=== PATIENT | female | born 1970 | race Caucasian/White ===

== ENCOUNTER 2018-11-22 20:44 | Emergency (ER) | payer BC ==
--- NOTE | 2018-11-22 21:44 | EDM.PDOC ---
ED HPI GENERAL MEDICAL PROBLEM - General Chief Complaint: General Stated Complaint: fever 101.2 Time Seen by Provider: 11/22/18 21:10 Source of Information: Reports: Patient, Significant Other (Boyfriend) History Limitations: Reports: No Limitations - History of Present Illness INITIAL COMMENTS - FREE TEXT/NARRATIVE: Ms. Robertson is a pleasant 48-year-old woman who states that she developed chills and body aches around 14:00 this afternoon. She found her temperature to be elevated at 101.2 around 19:00. She took 400 mg of ibuprofen around 20:00. The patient denies recent urinary symptoms, such as dysuria, urinary frequency, or urgency, although she reports some urinary pressure that developed around 19: 00. She denies having suprapubic pain, low back pain, or flank pain. The patient states that she had some watery diarrhea this morning. No recent nausea, vomiting, or constipation. No recent cough or dyspnea. No recent sinus pressure, sinus congestion, nasal congestion, or rhinorrhea. No similarly ill contacts. The patient states that she has never received an influenza vaccine. The patient's PCP is Vida Preciado NP. She receives gynecologic care from Minerva Gil NP or Dr. Harley Lucio. 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 Psychiatric History: Reports: Anxiety, Depression Endocrine/Metabolic History: Reports: Obesity/BMI 30+ - Infectious Disease History Infectious Disease History: Reports: Chicken Pox - Past Surgical History HEENT Surgical History: Reports: Oral Surgery (wisdom teeth extraction) GI Surgical History: Reports: Appendectomy, Cholecystectomy (1991 or ) Female Surgical History: Reports: D&C (x 1), Other (See Below) (Salpingotomy for tubal ) Social & Family History - Family History Family Medical History: Noncontributory Cardiac: Reports: Hypertension Endocrine/Metabolic: Reports: Diabetes, type II Oncologic: Reports: Thyroid - Tobacco Use Smoking Status *Q: Former Smoker Years of Tobacco use: 33 Packs/Tins Daily: 0.3 Month/Year Tobacco Last Used: Quit Mar 2018 - Caffeine Use Caffeine Use: Reports: Soda Other Caffeine Use: occasional soda - Alcohol Use Alcohol Use History: Yes Alcohol Use Frequency: Socially - Recreational Drug Use Recreational Drug Use: No - Living Situation & Occupation Living situation: Reports: , with Significant Other (Boyfriend) 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 ED EXAM, GENERAL - Physical Exam Exam: See Below Exam Limited By: No Limitations General Appearance: Alert, WD/WN, No Apparent Distress Eye Exam: Bilateral Eye: EOMI, Normal Inspection Ears: Normal External Exam, Hearing Grossly Normal Nose: Normal Inspection Throat/Mouth: Normal Inspection, Normal Lips, Normal Voice, No Airway Compromise Head: Atraumatic, Normocephalic Neck: Normal Inspection, Full Range of Motion Respiratory/Chest: No Respiratory Distress, Lungs Clear, Normal Breath Sounds, No Accessory Muscle Use. No: Decreased Breath Sounds, Crackles, Rhonchi, Wheezing, Stridor, Prolonged Expiration Cardiovascular: Normal Peripheral Pulses, Regular Rate, Rhythm, No Edema, No Gallop, No JVD, No Murmur, No Rub Peripheral Pulses: 4+: Radial (L), Radial (R) GI/Abdominal: Normal Bowel Sounds, Soft, Non-Tender (including suprapubically), No Organomegaly, No Distention, No Abnormal Bruit, No Mass (Female) Exam: Deferred Rectal (Female) Exam: Deferred Back Exam: Normal Inspection, Full Range of Motion. No: CVA Tenderness (L), CVA Tenderness (R) Extremities: Normal Inspection, Normal Range of Motion, No Pedal Edema, Normal Capillary Refill Neurological: Alert, Oriented, Normal Cognition, No Motor/Sensory Deficits Psychiatric: Normal Affect Skin Exam: Warm, Dry, Intact, Normal Color, No Rash Course - Vital Signs Last Recorded V/S: Last Vital Signs Temp 36.1 C 11/22/18 21:00 Pulse 98 11/22/18 21:00 Resp 18 11/22/18 21:00 BP 120/81 11/22/18 21:00 Pulse Ox 98 11/22/18 21:00 - Orders/Labs/Meds Orders: Active Orders 24 hr Category Date Time Status CULTURE URINE [RM] Stat Lab 11/22/18 23:35 Ordered Labs: Laboratory Tests 11/22/18 11/22/18 11/22/18 Range/Units 21:15 21:15 22:35 Urine Color Yellow Dark yellow (Yellow) Urine Appearance Slt cloudy H Slt cloudy H (Clear) Urine pH 8.5 H 6.0 (5.0-8.0) Ur Specific [place] 1.020 > or = 1.030 (1.005-1.030) Urine Protein Trace H 1+ H (Negative) Urine Glucose (UA) Negative Negative (Negative) Urine Ketones Negative 1+ H (Negative) Urine Occult Blood 2+ H 3+ H (Negative) Urine Nitrite Negative Negative (Negative) Urine Bilirubin Negative 1+ H (Negative) Urine Urobilinogen 0.2 0.2 (0.2-1.0) Ur Leukocyte Esterase Negative Negative (Negative) Urine RBC 20-30 H 10-20 H (0-5) /hpf Urine WBC 0-5 0-5 (0-5) /hpf Ur Squamous Epith Cells 10-20 H 0-5 (0-5) /hpf Amorphous Sediment Many H (NOT SEEN) /hpf Urine Bacteria Moderate H Moderate H (FEW) /hpf Urine Mucus Few Moderate H (FEW) /hpf Urine HCG, Qual Negative (NEGATIVE) - Re-Assessments/Exams Free Text/Narrative Re-Assessment/Exam: 11/22/18 21:42 The patient's physical exam is nonfocal, indicating that she likely has a viral illness. The patient has already provided a urine sample, and I ordered a urinalysis and urine test. Because the patient has never received an influenza vaccine, and because she had a fever, even though she has not been coughing, I ordered an influenza swab. I do not see an indication for any other testing at this time. 11/22/18 22:10 The patient's urinalysis appears to be contaminated and is uninterpretable. Her urine test is negative. The influenza swab is still pending. I have ordered a repeat urinalysis. 11/22/18 23:32 The patient was seen eloping from the ED without notifying her nurse. We attempted to contact her by cell phone, but none of the numbers provided appear to be active. 11/22/18 23:35 The patient's repeat urinalysis just resulted. It demonstrates slightly cloudy appearance, 3+ occult blood with 10-20 RBCs, leukocyte esterase negative with 0- 5 WBCs, nitrate negative with moderate bacteria, and 0-5 squamous epithelial cells. This urinalysis is more concerning for a ureterolith, but is not inconsistent with a UTI. I have ordered a urine culture, in case the patient follows up or returns to the ED. Departure - Departure Time of Disposition: 23:35 Disposition: Eloped 07 Condition: Good Clinical Impression: UTI (urinary tract infection), Febrile illness - Discharge Information *PRESCRIPTION DRUG MONITORING PROGRAM REVIEWED*: Not Applicable *COPY OF PRESCRIPTION DRUG MONITORING REPORT IN PATIENT MAREK: Not Applicable Referrals: Vida Preciado NP [Ordering Only Provider] - - My Orders Last 24 Hours: My Active Orders 11/22/18 23:35 CULTURE URINE [RM] Stat - Assessment/Plan Last 24 Hours: My Active Orders 11/22/18 23:35 CULTURE URINE [RM] Stat
== END 2018-11-22 23:25 | disposition left against medical advice (07) ==
LOC: JD.ED 20:44
DX: N39.0 Urinary tract infection, site not specified (principal); R50.9 Fever, unspecified; F32.9 Major depressive disorder, single episode, unspecified; K21.9 Gastro-esophageal reflux disease without esophagitis; E66.9 Obesity, unspecified; Z68.31 Body mass index [BMI] 31.0-31.9, adult; Z87.891 Personal history of nicotine dependence; Z79.899 Other long term (current) drug therapy
CPT/HCPCS: 81001; 81025; 87086; 87804; 99283

== ENCOUNTER 2020-06-27 07:32 | Day surgery (SDC) | payer BC ==
[~2020-06-27 07:32] MED LIST: Dexamethasone 4 MG/ML 5 ML MDV ONE; Lactated Ringers 1,000 ML IV SCH; Lactated Ringers 1,000 ML ONE; Lidocaine 1% 4 ML ONE; Lidocaine 1%/Sod Bicarbonate in NS 8.4% 1 ML Syringe IDERM PRN; Midazolam 1 MG/ML 2 ML SDV ONE; Ondansetron 4 MG/2 ML SDV ONE; Propofol 200 MG/20 ML SDV ONE; Rocuronium 50 MG/5 ML Vial ONE; Sodium Chloride 0.9% 10 ML Syringe FLUSH PRN; ceFAZolin 1 GM Vial ONE; fentaNYL 250 MCG/5 ML SDV ONE
[2020-06-27] MEDS: Lidocaine 1% with EPINEPHrine 1:100,000 10 ML MDV ONE ×2 (09:20→09:31)
[2020-06-27] MEDS: Sodium Chloride 0.9% 50 ML SDV ONE ×2 (09:20→09:30)
[2020-06-27] MEDS ORDERED: Propofol 200 MG/20 ML SDV ONE (09:25)
[2020-06-27] MEDS ORDERED: Ketamine 500 mg/10 ML MDV ONE (09:25)
[2020-06-27] MEDS ORDERED: HYDROmorphone 0.5 MG/0.5 ML Syringe IVPUSH PRN (09:41)
[2020-06-27] MEDS ORDERED: fentaNYL 100 MCG/2 ML SDV IVPUSH PRN (09:41)
[2020-06-27] MEDS ORDERED: Ondansetron 4 MG/2 ML SDV IVPUSH PRN ×2 (09:41→10:05)
[2020-06-27] MEDS ORDERED: Ketorolac 30 MG/ML SDV ONE (09:44)
--- NOTE | 2020-06-27 09:55 | PCM.PREANE ---
Preanesthetic Assessment - Procedure Proposed Procedure: Total Vaginal Hysterectomy with bilateral salpingectomy - Anesthesia/Transfusion/Family Hx Anesthesia History: Prior Anesthesia Without Reaction Family History of Anesthesia Reaction: No Transfusion History: No Prior Transfusion(s) - Review of Systems General: No Symptoms Pulmonary: No Symptoms Cardiovascular: No Symptoms Gastrointestinal: Other (Mild GERD, controlled with medication, no symptoms. ) Neurological: No Symptoms Other: Reports: None (Elevated platelets), Thyroid Problems (Abnomal TSH), Depression - Physical Assessment NPO Status Date: 06/26/20 NPO Status Time: 19:00 Vital Signs: Last Vital Signs Temp 36.6 C 06/27/20 08:00 Pulse 68 06/27/20 08:00 Resp 16 06/27/20 08:00 BP 136/80 06/27/20 08:00 Pulse Ox 98 06/27/20 08:00 Height: 1.68 m Weight: 93.894 kg ASA Class: 2 Mental Status: Alert & Oriented x3 Airway Class: Mallampati = 2 Dentition: Reports: [place](s) (Front tooth.), Missing Tooth/Teeth (Molar) Thyro-Mental Finger Breadths: 2 Mouth Opening Finger Breadths: 3 ROM/Head Extension: Full Lungs: Clear to Auscultation, Normal Respiratory Effort Cardiovascular: Regular Rate, Regular Rhythm - Allergies Allergies/Adverse Reactions: Allergies Allergy/AdvReac Type Severity Reaction Status Date / Time No Known Allergies Allergy Verified 06/27/20 08:21 - Anesthesia Plan Pre-Op Medication Ordered: Anxiolytic - Acknowledgements Anesthesia Type Planned: General Anesthesia Pt an Appropriate Candidate for the Planned Anesthesia: Yes Alternatives and Risks of Anesthesia Discussed w Pt/Guardian: Yes Pt/Guardian Understands and Agrees with Anesthesia Plan: Yes PreAnesthesia Questionnaire - Past Health History Medical/Surgical History: Denies Medical/Surgical History HEENT History: Reports: None Cardiovascular History: Reports: None Respiratory History: Reports: None Gastrointestinal History: Reports: GERD Genitourinary History: Reports: Pyelonephritis, UTI, Recurrent, Other (See Below) Other Genitourinary History: ectopic 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 , 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, , Other (See Below) Other OB/BYN History: fibrous breast lumps, gential warts, LGSIL Musculoskeletal History: Reports: None Neurological History: Reports: None Psychiatric History: Reports: Anxiety, Depression Endocrine/Metabolic History: Reports: Obesity/BMI 30+ Hematologic History: Reports: None Immunologic History: Reports: None Oncologic (Cancer) History: Reports: None Dermatologic History: Reports: None - Infectious Disease History Infectious Disease History: Reports: Chicken Pox - Past Surgical History Head Surgeries/Procedures: Reports: None HEENT Surgical History: Reports: Oral Surgery Cardiovascular Surgical History: Reports: None Respiratory Surgical History: Reports: None GI Surgical History: Reports: Appendectomy, Cholecystectomy Other GI Surgeries/Procedures: acute appendicitis---lap appy done 12/03/17 Female Surgical History: Reports: Breast Reduction, D&C, LEEP, Other (See Below) Other Female Surgeries/Procedures: tubal Endocrine Surgical History: Reports: None Neurological Surgical History: Reports: None Musculoskeletal Surgical History: Reports: None Oncologic Surgical History: Reports: None Dermatological Surgical History: Reports: None - SUBSTANCE USE Tobacco Use Status *Q: Former Tobacco User Recreational Drug Use History: No - HOME MEDS Home Medications: Home Meds Omeprazole 20 mg PO DAILY 12/03/17 [History] Melatonin 3 mg PO DAILY 06/26/20 [History] buPROPion [Wellbutrin SR] 150 mg PO DAILY 06/26/20 [History] - CURRENT (IN HOUSE) MEDS Current Meds: Current Medications Fentanyl (Fentanyl 100 Mcg/2 Ml Sdv) 50 mcg IVPUSH Q5M PRN PRN Reason: Pain Stop: 06/27/20 18:00 Hydromorphone HCl (Hydromorphone 0.5 Mg/0.5 Ml Syringe) 0.5 mg IVPUSH Q10M PRN PRN Reason: Pain (severe 7-10) Stop: 06/27/20 18:00 Lactated Ringer's (Ringers, Lactated) 1,000 mls @ 125 mls/hr IV ASDIRECTED TANNER Stop: 06/27/20 23:00 Last Admin: 06/27/20 08:00 Dose: 125 mls/hr Documented by: Lidocaine/Sodium Bicarbonate (Lidocaine 1%/Sod Bicarbonate In Ns 8.4% 1 Ml Syringe) 0.25 ml IDERM ONETIME PRN PRN Reason: Prior to IV Start Stop: 06/27/20 18:00 Last Admin: 06/27/20 08:00 Dose: 0.25 ml Documented by: Ondansetron HCl (Ondansetron 4 Mg/2 Ml Sdv) 4 mg IVPUSH ONETIME PRN PRN Reason: Nausea/Vomiting Stop: 06/27/20 18:00 Sodium Chloride (Sodium Chloride 0.9% 10 Ml Syringe) 10 ml FLUSH ASDIRECTED PRN PRN Reason: Keep Vein Open Stop: 06/27/20 18:00 Discontinued Medications Cefazolin Sodium (Cefazolin 1 Gm Vial) Confirm Administered Dose 2 gm .ROUTE .STK-MED ONE Stop: 06/27/20 07:25 Dexamethasone (Dexamethasone 4 Mg/Ml 5 Ml Mdv) Confirm Administered Dose 20 mg .ROUTE .STK-MED ONE Stop: 06/27/20 07:33 Fentanyl (Fentanyl 250 Mcg/5 Ml Sdv) Confirm Administered Dose 250 mcg .ROUTE .S -MED ONE Stop: 06/27/20 07:26 Glycopyrrolate (Glycopyrrolate 0.2 Mg/Ml 2 Ml Syringe) Confirm Administered Dose 0.4 mg .ROUTE .STK-MED ONE Stop: 06/27/20 09:43 Lidocaine HCl (Xylocaine-Mpf 1%) Confirm Administered Dose 4 mls @ as directed .ROUTE .STK-MED ONE Stop: 06/27/20 07:25 Lactated Ringer's (Ringers, Lactated) Confirm Administered Dose 1,000 mls @ as directed .ROUTE .STK-MED ONE Stop: 06/27/20 07:25 Ketamine HCl (Ketamine 500 Mg/10 Ml Mdv) Confirm Administered Dose 500 mg .ROUTE .STK-MED ONE Stop: 06/27/20 09:26 Ketorolac Tromethamine (Ketorolac 30 Mg/Ml Sdv) Confirm Administered Dose 30 mg .ROUTE .STK-MED ONE Stop: 06/27/20 09:45 Lidocaine/Epinephrine (Lidocaine 1% With Epinephrine 1:100,000 10 Ml Mdv) Confirm Administered Dose 20 ml .ROUTE .STK-MED ONE Stop: 06/27/20 08:22 Last Admin: 06/27/20 09:31 Dose: 20 ml Documented by: Midazolam HCl (Midazolam 1 Mg/Ml 2 Ml Sdv) Confirm Administered Dose 2 mg .ROUTE .STK-MED ONE Stop: 06/27/20 07:26 Neostigmine Methylsulfate (Neostigmine Methylsulfate 5 Mg/5 Ml Syringe) Confirm Administered Dose 5 mg .ROUTE .STK-MED ONE Stop: 06/27/20 09:43 Ondansetron HCl (Ondansetron 4 Mg/2 Ml Sdv) Confirm Administered Dose 4 mg .ROUTE .STK-MED ONE Stop: 06/27/20 07:25 Propofol (Propofol 200 Mg/20 Ml Sdv) Confirm Administered Dose 400 mg .ROUTE .STGradeable-MED ONE Stop: 06/27/20 07:25 Propofol (Propofol 200 Mg/20 Ml Sdv) Confirm Administered Dose 200 mg .ROUTE .STK-MED ONE Stop: 06/27/20 09:26 Rocuronium [place] (Rocuronium 50 Mg/5 Ml Vial) Confirm Administered Dose 50 mg .ROUTE .STK-MED ONE Stop: 06/27/20 07:25 Sodium Chloride (Sodium Chloride 0.9% 50 Ml Sdv) Confirm Administered Dose 50 ml .ROUTE .STGradeable-MED ONE Stop: 06/27/20 08:22 Last Admin: 06/27/20 09:30 Dose: 50 ml Documented by:
[2020-06-27] MEDS ORDERED: Acetaminophen/oxyCODONE 325-5 MG Tab PO PRN (10:05)
--- NOTE | 2020-06-27 10:11 | PCM.OPNOTE ---
- General Post-Op/Procedure Note Date of Surgery/Procedure: 06/27/20 Operative Procedure(s): Total vaginal hysterectomy with bilateral salpingectomy Findings: Uterus is small, fallopian tubes were within normal is. There is no evidence of previous salpingectomy or partial salpingectomy. Fibroid noted on the posterior right aspect of the uterus. This is approximately 1 cm in diameter. Ovaries appeared functional and normal in appearance and were left in place per patient desire. Pre Op Diagnosis: 1. Persistently abnormal Pap smears Post-Op Diagnosis: Same Anesthesia Technique: General ET Tube Other Anesthesia Type: Lidocaine quarter percent with [id number] cclocal Primary Surgeon: Harley Lucio Secondary Surgeon: Omari Best Anesthesia Provider: Janie Martinez Reason Clothing And Textiles Teacher Was Necessary: Retraction, assistance, patient safety, quality of care Pathology: Uterus with bilateral fallopian tubes in 1 specimen container Fluid Replacement, Intraop: 1,200 EBL in mLs: 130 Complications: None Condition: Good Free Text/Narrative:: Surgery duration: 32 minutes Procedure: The patient was properly consented. She was given Ancef 2 g IV for infection prophylaxis and had sequential compression stockings in place for DVT prophylaxis. The patient was placed in supine position on the operating table. General endotracheal anesthesia was accomplished. After positioning, and adequate prep and drape, the procedure was then performed. Sterile speculum was placed in the vagina and cervix was visualized. Cervix was injected with lidocaine quarter percent with epinephrine-20 mL used. A full circumference incision was made in the cervical epithelium. The bladder was pushed well back off cervix. Posterior cul-de-sac was then entered sharply without problems. Left uterosacral was crossclamped with a Enseal vessel closure system. The left uterosacral and then the right uterosacral ligament pedicles were developed using the Enseal system. The anterior cul-de-sac was then entered without problems and the uterine vasculature, cardinal ligament and broad ligament then developed using Enseal vessel closure system. The uterus was inverted at this time and upper broad ligament fallopian tube pedicles were crossclamped with Trinity clamps. Specimen was totally removed. Both these pedicles were then secured with the Enseal vessel closure system. Left and right fallopian tube were normal in appearance.. Using Enseal vessel closure system each of the tubes were then removed and sent with the specimen. The patient was found to be hemostatically intact at this time. Posterior vaginal cuff was sutured for hemostatic reasons with a running locked suture of 0 Monocryl from the 2 o'clock position to the 10 o'clock position posteriorly. Vaginal cuff was then closed from patient's left to right side with a running locked suture of 0 Monocryl. Patient was returned to supine position and awakened from general endotracheal anesthesia. She tolerated the procedure and left the operating room in satisfactory condition.
--- NOTE | 2020-06-27 10:21 | PCM.POSTAN ---
POST ANESTHESIA ASSESSMENT - MENTAL STATUS Mental Status: Alert, Oriented - VITAL SIGNS Vital Signs: Last Vital Signs Temp 36.6 C 06/27/20 08:00 Pulse 68 06/27/20 08:00 Resp 16 06/27/20 08:00 BP 136/80 06/27/20 08:00 Pulse Ox 98 06/27/20 08:00 1012 118/74 76 11 97F 100% - RESPIRATORY Respiratory Status: Respiratory Rate WNL, Airway Patent, O2 Saturation Stable, Supplemental Oxygen - CARDIOVASCULAR CV Status: Pulse Rate WNL, Blood Pressure Stable - GASTROINTESTINAL GI Status: No Symptoms - PAIN Pain Score: 0 - POST OP HYDRATION Hydration Status: Adequate & Stable
[2020-06-27] MEDS ORDERED: Acetaminophen/oxyCODONE 325-5 MG Tab PO ONE (11:03)
--- NOTE | 2020-06-27 12:44 | PCM48HPAN ---
Post Anesthesia Note - EVALUATION WITHIN 48HRS OF ANESTHETIC Vital Signs in Normal Range: Yes Patient Participated in Evaluation: Yes Respiratory Function Stable: Yes Airway Patent: Yes Cardiovascular Function Stable: Yes Hydration Status Stable: Yes Pain Control Satisfactory: Yes Nausea and Vomiting Control Satisfactory: Yes Mental Status Recovered: Yes Vital Signs: Last Vital Signs Temp 36.4 C 06/27/20 10:45 Pulse 63 06/27/20 10:45 Resp 12 06/27/20 10:45 BP 99/55 L 06/27/20 10:45 Pulse Ox 100 06/27/20 10:45
[2020-06-27] MEDS ORDERED: Ondansetron 4 MG Tab.DIS PO ONE (12:55)
[2020-06-27] MEDS ORDERED: Ketorolac 30 MG/ML SDV IVPUSH ONE (16:00)
[2020-06-27] MEDS ORDERED: Ibuprofen 600 MG Tab PO PRN (22:00)
== END 2020-06-27 13:24 | disposition home or self-care (01) ==
LOC: JD.SDS 07:32
PROVIDERS: ATTEND Obstetrics & Gynecology
DX: D25.1 Intramural leiomyoma of uterus (principal); N73.6 Female pelvic peritoneal adhesions (postinfective); R87.612 Low grade squamous intraepithelial lesion on cytologic smear of cervix (LGSIL); E66.9 Obesity, unspecified; K21.9 Gastro-esophageal reflux disease without esophagitis; Z79.899 Other long term (current) drug therapy; Z90.49 Acquired absence of other specified parts of digestive tract; Z87.891 Personal history of nicotine dependence; Z68.33 Body mass index [BMI] 33.0-33.9, adult
CPT/HCPCS: 58262; A9270; J0690; J1100; J1885; J2250; J2405; J2704; J2710; J3010; J7120; 00944

== ENCOUNTER 2021-03-17 15:42 | Emergency (ER) | payer BC ==
[2021-03-17] MEDS ORDERED: Sodium Chloride 0.9% 10 ML Syringe FLUSH PRN (16:02)
== END 2021-03-17 17:37 | disposition home or self-care (01) ==
LOC: SUPCPDRO 15:42 → JD.ED 15:42
DX: R06.02 Shortness of breath (principal); K21.9 Gastro-esophageal reflux disease without esophagitis; E66.9 Obesity, unspecified; Z68.30 Body mass index [BMI] 30.0-30.9, adult; Z79.899 Other long term (current) drug therapy
CPT/HCPCS: 36415; 71045; 71045-26; 80053; 84484; 85025; 85379; 93005; 93010; 99285; 99285-25

== ENCOUNTER 2021-07-13 20:32 | Emergency (ER) | payer BC | END 2021-07-13 22:05 | disposition home or self-care (01) | LOC: JD.ED 20:32 | DX: J01.90 Acute sinusitis, unspecified (principal); K21.9 Gastro-esophageal reflux disease without esophagitis; E66.9 Obesity, unspecified; Z68.33 Body mass index [BMI] 33.0-33.9, adult; Z86.16 Personal history of COVID-19; Z90.49 Acquired absence of other specified parts of digestive tract | CPT/HCPCS: 99283 ==